=== PATIENT | male | born 1955 | race Caucasian/White ===

== ENCOUNTER 2021-02-28 20:33 | Emergency (ER) | payer BC ==
[~2021-02-28] VITALS: Ht 175.3 cm; Wt 81.6 kg
[2021-02-28] MEDS ORDERED: PREDNISONE20 MG PO (21:54)
[2021-02-28] MEDS ORDERED: valcyclovir PO (21:54)
[2021-02-28] MEDS ORDERED: IBUPROFEN600 MG PO (21:54)
[2021-02-28] MEDS ORDERED: KETOROLAC TROMETHAMINE 30 MG/ML VIAL IM STA (21:57)
[2021-02-28] MEDS ORDERED: KETOROLAC TROMETHAMINE 30 MG/ML VIAL ONE (22:08)
== END 2021-02-28 22:10 | disposition home or self-care (01) ==
LOC: FSED 21:40
DX: B02.9 Zoster without complications (principal)
CPT/HCPCS: 99282; J1885

== ENCOUNTER 2022-06-10 08:39 | Emergency (ER) | payer BC ==
[~2022-06-10] VITALS: Ht 170.2 cm; Wt 88.5 kg
[~2022-06-10 08:39] MED LIST: IBUPROFEN600 MG PO; PREDNISONE20 MG PO; valcyclovir PO
[2022-06-10] MEDS ORDERED: KETOROLAC TROMETHAMINE 30 MG/ML VIAL IM STA (08:46)
[2022-06-10] MEDS ORDERED: KETOROLAC TROMETHAMINE 30 MG/ML VIAL ONE (09:00)
== END 2022-06-10 10:37 | disposition home or self-care (01) ==
LOC: FSED 08:42
DX: M17.12 Unilateral primary osteoarthritis, left knee (principal); I10 Essential (primary) hypertension; Z88.6 Allergy status to analgesic agent
CPT/HCPCS: 73560; 99282; J1885